=== PATIENT | female | born 1950 | race Caucasian/White ===

== ENCOUNTER 2019-06-27 01:11 | Day surgery (SDC) | payer MEDICARE, OTHER, SELFPAY ==
[2019-06-25 09:45] VITALS: BMI 22.4
[2019-06-27] MEDS: LACTATED RINGERS 1,000 ML 150 ML IV CONT (06:55)
[2019-06-27 07:01] VITALS: BP 110/52; PULSE 62; RESP 18; TEMP 36.1; O2SAT 100; BMI 23.1
--- NOTE | 2019-06-27 07:17 | P.HP_ITS ---
History of Present Illness History of Present Illness Consent: Risks, benefits, and alternatives have been discussed and questions answered. Patient agrees to proceed with procedure. Chief complaint: Neoplasm Screening Narrative: Loreto Yin is a 69 year old female Here for screening colonoscopy. [facility] Past Medical History Medical History (Updated 06/27/19 @ 07:17 by Vipin Wade MD) Wellness examination Family History Family History Father Family history of cardiovascular disease Mother Family history of malignant neoplasm of urinary bladder Social History Social History Smoking status: Never smoker Alcohol intake: never Meds Home Medications and Allergies Home Medications Medication Instructions Recorded Confirmed Type Lacto.acidophilus-Bif.animalis 1 cap PO DAILY 06/25/19 06/27/19 History [Daily Probiotic] ascorbate calcium (vitamin C) 500 mg PO DAILY 06/25/19 06/27/19 History azelastine 2 spray NASAL DAILY 06/25/19 06/25/19 History guaifenesin [Mucinex] 600 mg PO BID 06/25/19 06/25/19 History yx-utp-fkczw-vit J-oky-nudq455 1 tablet PO DAILY 06/25/19 06/27/19 History [Alive Women's 50 Plus (blend)] Allergies Allergy/AdvReac Type Severity Reaction Status Date / Time No Known Allergies Allergy Uncoded 06/27/19 06:59 Vital Signs Vital Signs - 24 hr 06/27/19 07:01 Temperature 36.1 C L Pulse Rate 62 Respiratory Rate 18 Blood Pressure 110/52 L Pulse Oximetry 100 Exam Resp: Auscultation: clear to auscultation bilaterally Cardio: Rate: regular rate Rhythm: regular rhythm GI: GI Palp: Yes Soft to palpation and No Tenderness to palpation present (GI) Assessment and Plan Assessment and plan (1) Colon cancer screening: Code(s): Z12.11 - Encounter for screening for malignant neoplasm of colon Status: Acute Assessment and Plan: Colonoscopy with possible biopsy or polypectomy or cautery or injection of substances.
--- NOTE | 2019-06-27 07:46 | WPDANESEPPF ---
Anes - Initial Pre Proc Eval Procedure: Operation Date: 06/27/19 08:00 Proposed Procedures p Screening Colonoscopy - Vipin Wade MD Date/Time: 06/27/19 07:46 Surgeon: Vipin Wade MD Pre Op Diagnosis: Neoplasm Screening Patient Data Age: 69 Gender: F Height: 5 ft 5 in Weight: 62.9 kg Last Vital Signs Temp 97 F L 06/27/19 07:01 Pulse 62 06/27/19 07:01 Resp 18 06/27/19 07:01 BP 110/52 L 06/27/19 07:01 Pulse Ox 100 06/27/19 07:01 Allergies Allergy/AdvReac Type Severity Reaction Status Date / Time No Known Allergies Allergy Uncoded 06/27/19 06:59 Home Medications Medication Instructions Recorded Confirmed Type Lacto.acidophilus-Bif.animalis 1 cap PO DAILY 06/25/19 06/27/19 History [Daily Probiotic] ascorbate calcium (vitamin C) 500 mg PO DAILY 06/25/19 06/27/19 History azelastine 2 spray NASAL DAILY 06/25/19 06/25/19 History guaifenesin [Mucinex] 600 mg PO BID 06/25/19 06/25/19 History pq-mld-xfyjq-vit T-hqn-[id number] 1 tablet PO DAILY 06/25/19 06/27/19 History [Alive Women's 50 Plus (blend)] Patient hx anesthesia problems: none Family hx anesthesia problems: none PMFSH Past Medical History Medical History Wellness examination Family History Family History Father Family history of cardiovascular disease Mother Family history of malignant neoplasm of urinary bladder Social History Social History Smoking status: Never smoker Alcohol intake: never Anes - Eval Final PreProcedure Day of Procedure 06/27/19 07:46 Patient weight: normal Heart: regular rate and rhythm Lungs: clear to auscultation Airway: Mallampati scale class II Neurological: alert and oriented Last oral intake: >/= 8 hours ASA classification: II Emergent: no Anesthetic plan: proceed Anesthesia type and monitoring: general GIVS and standard monitoring Informed Consent: The patient's anesthetic plan and its attendant risks and benefits were discussed with the patient/family/POA. Questions were solicited and answers provided to the satisfaction of the patient/family/POA.
[2019-06-27 08:15] VITALS: BP 94/40; PULSE 68; RESP 22; O2SAT 99
[2019-06-27 08:25] VITALS: BP 99/56; PULSE 61; RESP 20; O2SAT 100
[2019-06-27 08:35] VITALS: BP 107/60; PULSE 61; RESP 18; O2SAT 100
== END 2019-06-27 08:43 | disposition home or self-care (01) ==
PROVIDERS: PCP Family Medicine; Visit Provider Internal Medicine Gastroenterology
PROC: 0DJD8ZZ Inspection of Lower Intestinal Tract, Via Natural or Artificial Opening Endoscopic (ICD-10-PCS; CPT 45378; principal; 2019-06-27 08:00)
DX: Z12.11 Encounter for screening for malignant neoplasm of colon (principal)
CPT/HCPCS: G0121; J2704; J7120

== ENCOUNTER → 2020-09-28 10:57 | Outpatient (CLI) | payer MEDICARE, OTHER, SELFPAY ==
--- NOTE | ~2020-09-28 | DEXA_ITS ---
Bone Density Report Name: Loreto Yin Age: 70 Sex: Female Ethnicity: White Date of : 1950 Indication: osteopenia; cancer; postmenopausal Referring Provider: Jennifer, Gabby Bowers Study: Bone densitometry was performed. Exam Date: September 28, 2020 Accession number: [id number] Bone Density: Region BMD T-score Z-score Classification AP Spine (L1-L4) 0.868 -1.6 0.4 Osteopenia Femoral Neck (Left) 0.683 -1.5 0.2 Osteopenia Total Hip (Left) 0.914 -0.2 1.2 Normal Femoral Neck (Right) 0.654 -1.8 -0.1 Osteopenia Total Hip (Right) 0.864 -0.6 0.8 Normal Total Hip Mean 0.889 -0.4 1.0 Normal World Health Organization criteria for BMD impression classify patients as: Normal (T-score at or above -1.0), Osteopenia (T-score between -1.0 and -2.5), or Osteoporosis (T-score at or below -2.5). 10-year Fracture Risk(1): Major Osteoporotic Fracture 10.0% Hip Fracture 1.6% Reported Risk Factors: [place] (), Neck BMD=0.654, BMI=23.3 (1) FRAX(R) Version 3.08. Fracture probability calculated for an untreated patient. Fracture probability may be lower if the patient has received treatment. Previous Exams: Region Exam Age BMD T-score BMD Change BMD Change Date g/cm2 vs Baseline vs Previous AP Spine(L1-L4) 09/28/2020 70 0.868 -1.6 -0.001 -0.001 10/19/2016 66 0.869 -1.6 Total Hip(Left) 09/28/2020 70 0.914 -0.2 0.018 0.018 10/19/2016 66 0.897 -0.4 Total Hip(Right) 09/28/2020 70 0.864 -0.6 0.000 0.000 10/19/2016 66 0.864 -0.6 *Denotes significance at 95% confidence level, LSC for AP Spine = 0.022 g/cm2, LSC for Total Hip = 0.027 g/cm2 Clinical Information Provided by Patient: Has the following medical conditions: Cancer Patient maximum height was 65.5 Menopause Age: 52 Drinks caffeinated beverages Onset of menses at age 14 Number of children 0 Impression: The patient has low bone mass, based on the Right Femoral Neck T-score. The patient has an estimated ten-year risk of hip fracture of 1.6% and an estimated ten-year risk of major fracture of 10%, based on the WHO FRAX algorithm. No significant bone loss was observed. Discussion: BONE DENSITY IS LOW AT ONE OR MORE SKELETAL SITES. This patient's lowest T-score is low at one or more skeletal sites. It meets the World Health Organization's (WHO) criteria for ?low bone mass? (T-score between -1.0 and -2.5). The ruby
--- NOTE | ~2020-09-28 | MM_ITS ---
EXAMINATION: MM screening jailene LT w edmundo HISTORY: Screening TECHNIQUE: Craniocaudal and mediolateral oblique 3-D tomosynthesis images were obtained and synthetic 2-D images were generated. CAD analysis was submitted and interpreted. COMPARISON: Comparison to multiple prior studies sequentially, with oldest reviewed study dated 10/2015. BREAST PARENCHYMAL COMPOSITION: There are scattered areas of fibroglandular density. FINDINGS: There is no evidence of suspicious mass, calcification, or architectural distortion to sugg est malignancy in the left breast. There has been no suspicious interval change. IMPRESSION: 1. No mammographic evidence of malignancy. 2. Recommend routine screening mammography in one year. BI-RADS Category 1: Negative Reviewed, dictated and finalized at location A.
== END ==
PROVIDERS: PCP Family Medicine; Visit Provider Nurse Practitioner Obstetrics & Gynecology
DX: Z12.31 Encounter for screening mammogram for malignant neoplasm of breast (principal); Z78.0 Asymptomatic menopausal state; M85.88 Other specified disorders of bone density and structure, other site; M85.852 Other specified disorders of bone density and structure, left thigh; M85.851 Other specified disorders of bone density and structure, right thigh
CPT/HCPCS: 77063; 77067; 77080

== ENCOUNTER 2020-11-04 10:52 | Emergency (ER) | payer MEDICARE, OTHER, SELFPAY ==
[2020-11-04 10:59] VITALS: BP 105/42; PULSE 76; RESP 20; TEMP 37.5; O2SAT 98
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
== END 2020-11-04 11:20 | disposition home or self-care (01) ==
PROVIDERS: Emergency Provider Nurse Practitioner Family; PCP Family Medicine
DX: S39.012A Strain of muscle, fascia and tendon of lower back, initial encounter (principal); X50.1XXA Overexertion from prolonged static or awkward postures, initial encounter; M62.830 Muscle spasm of back
CPT/HCPCS: 99213; G0463

== ENCOUNTER 2021-05-20 16:01 | Emergency (ER) | payer MEDICARE, OTHER, SELFPAY ==
[2021-05-20 16:16] VITALS: BP 120/63; PULSE 86; RESP 18; TEMP 37.2; O2SAT 100
--- NOTE | 2021-05-20 16:48 | ED.URI ---
HPI - URI/Sore Throat General Chief Complaint: Upper Respiratory Infection Stated Complaint: Cough/Congestion Time Seen by Provider: 05/20/21 16:46 Source: patient and RN notes reviewed Mode of arrival: ambulatory History of Present Illness HPI Narrative: This is a 71-year-old female who presented to urgent care with complaints of a worsening cough and throat congestion. Patient noted that approximately 1 week ago she also had head congestion along with a runny nose. She did not take anything at home for her symptoms. The patient denies SOB, CP, palpitation, extremity numbness, lightheadedness, dizziness, constipation, diarrhea, chills, or fever. Related Data Home Medications Medication Instructions Recorded Confirmed Alive Women's 50 Plus (blend) 1 tablet PO DAILY 06/25/19 11/04/20 Daily Probiotic 1 cap PO DAILY 06/25/19 11/04/20 ascorbate calcium (vitamin C) 500 mg PO DAILY 06/25/19 11/04/20 Allergies Allergy/AdvReac Type Severity Reaction Status Date / Time No Known Allergies Allergy Unknown Uncoded 11/04/20 11:04 Review of Systems Review of Systems: A 14 organ system Review of Systems was performed and pertinent positives included in the HPI, otherwise remaining ROS is negative. [facility] Past Medical History Medical History Wellness examination Surgical History Surgical History History of bladder suspension procedure History of right mastectomy History of shoulder surgery Family History Family History Father Family history of cardiovascular disease Mother Family history of malignant neoplasm of urinary bladder Social History Social History Smoking status: Never smoker Second hand tobacco smoke exposure: No Alcohol intake: never Substance use: never Substance use type: does not use Gender identity (if verbalized by the patient): Female Sexual Orientation (if Verbalized by the Patient): Straight or Heterosexual Exam Narrative: GENERAL: This is a well-nourished, well-developed patient, in no apparent distress. HEAD: normocephalic, atraumatic. EYES: PERRL. Sclera clear/white. Vision is grossly intact. EARS: External ears normal, auditory canals clear and without drainage, TMs normal without perforation. Hearing grossly intact. NOSE: External nose normal with no obvious nasal discharge, nares without redness, no rhinorrhea. THROAT: Mucous membranes moist, posterior pharynx clear. NECK: Neck supple, non-tender without lymphadenopathy, masses or thyromegaly. CARDIOVASCULAR: Regular rate and rhythm without murmurs, gallops, or rubs. RESPIRATORY: Clear to auscultation. Breath sounds equal bilaterally. No wheezes, rales, or rhonchi. GASTROINTESTINAL: Abdomen soft, non-tender, nondistended. Bowel sounds are active. No hepato-splenomegaly, or palpable masses. No guarding. SKIN: warm, intact with no suspicious lesions or rash, good texture and turgor. NEURO: awake, alert, and oriented to person, place and time. There were no obvious focal neurologic abnormalities. Steady gait EXTREMITIES: Normal range of motion. No edema. No calf tenderness. Negative Homans sign bilaterally. BACK: Nontender without deformity or crepitance. No flank tenderness. Course Course Emergency Course: Patient will discharge home with a Z-Kannan and guaifenesin treated for bronchitis Level of Care: Express Care Visit Vital Signs Vital signs: Vital Signs Temperature 99.0 F 05/20/21 16:16 Pulse Rate 86 05/20/21 16:16 Respiratory Rate 18 05/20/21 16:16 Blood Pressure 120/63 05/20/21 16:16 Pulse Oximetry 100 05/20/21 16:16 Temperature 99.0 F 05/20/21 16:16 Pulse Rate 86 05/20/21 16:16 Respiratory Rate 18 05/20/21 16:16 Blood Pressure 120/63 05/20/21 16:16 Pulse Oxim
== END 2021-05-20 17:12 | disposition home or self-care (01) ==
PROVIDERS: Nurse Practitioner Family; Emergency Provider Nurse Practitioner; PCP Family Medicine
DX: J40 Bronchitis, not specified as acute or chronic (principal); Z90.11 Acquired absence of right breast and nipple; Z20.822 Contact with and (suspected) exposure to COVID-19
CPT/HCPCS: 87426; 99213; C9803; G0463

== ENCOUNTER 2021-10-09 15:43 | Emergency (ER) | payer MEDICARE, OTHER, SELFPAY ==
[2021-10-09 15:48] VITALS: BP 130/56; PULSE 80; RESP 20; TEMP 37.9; O2SAT 97
--- NOTE | 2021-10-09 16:08 | ED.URI ---
HPI - URI/Sore Throat General Chief Complaint: Upper Respiratory Infection Stated Complaint: cough sore throat achey Time Seen by Provider: 10/09/21 15:55 Source: patient Mode of arrival: ambulatory Limitations: no limitations History of Present Illness HPI Narrative: Ms. Yin is a 71-year-old female patient presenting to the clinic today with complaints of cough, sore throat, and body aches times x1 week. She reports she gets this every year and is treated with steroids. She denies any fever or chills. She reports that she has a lot of nasal drainage going in the back of her throat that is causing her to cough. No known exposure to anyone with COVID, flu, or strep. She does not wish to be tested for influenza, COVID, or strep at this time. She denies any sinus pressure or headaches. MD elicited complaint: sore throat and nasal congestion Related Data Home Medications Medication Instructions Recorded Confirmed Lactobacillus 1 cap PO DAILY 06/25/19 06/09/21 acidophilus-Bifidobac.animalis 2.5 billion cell capsule (Daily Probiotic) ascorbate calcium (vitamin C) 500 500 mg PO DAILY 06/25/19 06/09/21 mg tablet elpcnqys-bpns-bantv acid 240 1 tablet PO DAILY 06/25/19 06/09/21 mcg-vit K 120 skk-jnhurr-hmlw 293 tablet (Alive Women's 50 Plus (fruit-veg blend)) Allergies Allergy/AdvReac Type Severity Reaction Status Date / Time No Known Allergies Allergy Unknown Uncoded 06/09/21 14:01 Review of Systems Review of Systems: Pertinent positives per HPI. Patient denies any fever, chills, rash, headache, visual changes, dizziness, shortness of breath, chest pain, palpitations, nausea, vomiting, diarrhea, constipation, abdominal pain, or any urinary issues. [facility] Past Medical History Medical History Wellness examination Surgical History Surgical History History of bladder suspension procedure History of right mastectomy History of shoulder surgery Family History Family History Father Family history of cardiovascular disease Mother Family history of malignant neoplasm of urinary bladder Social History Social History Smoking status: Never smoker Second hand tobacco smoke exposure: No Alcohol intake: never Substance use: never Substance use type: does not use Gender identity (if verbalized by the patient): Female Sexual Orientation (if Verbalized by the Patient): Straight or Heterosexual Comments At the time of my signature, I reviewed and agree with the nursing past medical, surgical, social, and family history. There is no relevant family history pertinent to the patient complaint. Exam Narrative: General: Well-developed, well nourished, in no apparent distress Head: Normocephalic, atraumatic Eyes: Pupils equally round and reactive to light bilaterally, EOM intact, sclera and conjunctive clear, no discharge, lids normal Ears: TMs intact and dull, ear canals clear, no drainage, grossly hearing normal. Nose: Nares patent, nasal discharge, mild inflammation, no sinus tenderness. Mouth: Oropharynx without lesions or masses, good dentition, MMM. Postnasal drip Neck: Supple, trachea midline, no enlargement of anterior or posterior cervical nodes, no thyroid masses or goiter palpable. Cardio: Regular rate and rhythm, s1 and s2 normal, no murmur appreciated. Resp: Clear to auscultation bilaterally anteriorly and posteriorly, no rhonchi, rales, wheezing or rubs Course Course Emergency Course: Portions of this record may have been created with voice recognition software. Level of Care: Express Care Visit Vital Signs Vital signs: Vital Signs Temperature 37.9 C H 10/09/21 15:48 Pulse Rate 80 10/09/21 15:48 Respiratory Rate 20 10/09/21 15:48 Blood Pre
== END 2021-10-09 16:27 | disposition home or self-care (01) ==
PROVIDERS: Emergency Provider Nurse Practitioner Family; PCP Family Medicine
DX: J06.9 Acute upper respiratory infection, unspecified (principal); Z90.11 Acquired absence of right breast and nipple
CPT/HCPCS: 99213; G0463

== ENCOUNTER → 2021-11-17 12:14 | Outpatient (CLI) | payer MEDICARE, OTHER, SELFPAY ==
--- NOTE | ~2021-11-17 | MM_ITS ---
EXAMINATION: MM screening jailene LT w edmundo HISTORY: Screening TECHNIQUE: Craniocaudal and mediolateral oblique 3-D tomosynthesis images were obtained and synthetic 2-D images were generated. CAD analysis was submitted and interpreted. COMPARISON: Comparison to multiple prior studies sequentially, with oldest reviewed study dated 10/2015. BREAST PARENCHYMAL COMPOSITION: There are scattered areas of fibroglandular density. FINDINGS: There is no evidence of suspicious mass, calcification, or architectural distortion to sugg est malignancy in the left breast. There has been no suspicious interval change. IMPRESSION: 1. No mammographic evidence of malignancy. 2. Recommend routine screening mammography in one year. BI-RADS Category 1: Negative Reviewed, dictated and finalized at location A.
== END ==
PROVIDERS: PCP Family Medicine; Visit Provider Physician Assistant
DX: Z12.31 Encounter for screening mammogram for malignant neoplasm of breast (principal)
CPT/HCPCS: 77063; 77067

== ENCOUNTER 2022-05-03 08:00 | Outpatient (NON) | payer MEDICARE, OTHER, SELFPAY | END 2022-05-03 08:01 | disposition home or self-care (01) | LOC: ANHLAB 05-04 13:26 | PROVIDERS: PCP Family Medicine; Visit Provider Nurse Practitioner | DX: L72.8 Other follicular cysts of the skin and subcutaneous tissue (principal) | CPT/HCPCS: 88304 ==

== ENCOUNTER 2023-10-16 08:43 | Outpatient (CLI) | payer MEDICARE, OTHER, SELFPAY ==
[2023-10-16 09:27] LABS: Hematocrit 40.6 % (37.0-47.0); Mean Corpuscular Hemoglobin 32.2 pg (26-34); Mean Corpuscular Volume 100.5 fl (80-100); Mean Platelet Volume 11.7 fl (7.4-10.4); Platelet Count Result 183 k/mm3 (150-375); Red Blood Count 4.04 M/mm3 (4.2-5.4); Red Cell Distribution Width 13.3 % (11.5-14.5); White Blood Count 4.7 K/mm3 (4.5-10.0)
[2023-10-16 09:31] LABS: Appearance Urine Clear (Clear); Bilirubin Urine Negative (Negative); Blood Urine Negative (Negative); Color Urine Yellow (Yellow); Glucose Urine UA Negative (Negative); Ketones Urine Negative (Negative); Leukocyte Esterase Ur Negative LEU/UL (Negative); Nitrate Urine Negative (Negative); Protein Urine Negative (Negative); Specific Grav Ur 1.015 (1.001-1.035); Urobilinogen Urine 0.2 mg/dL (<2.0)
[2023-10-16 09:39] LABS: Alanine Aminotransferase 32 U/L (6-35); Albumin Level 4.3 g/dL (3.5-5.1); Alkaline Phosphatase 87 U/L (38-126); Anion Gap 6 mmol/L (4-12); Aspartate Amino Transferase 29 U/L (14-36); Bilirubin,Total 0.5 mg/dL (0.2-1.3); Blood Urea Nitrogen 21 mg/dL (7-17); Calcium 9.4 mg/dL (8.4-10.2); Carbon Dioxide 27 mmol/L (22-30); Chloride 107 mmol/L (98-107); Cholesterol 179 mg/dL (0-200); Estimated Glomerular Filt Rate > 60; Glucose 91 mg/dL (65-110); HDL Direct 57 mg/dL; Potassium 3.8 mmol/L (3.4-5.0); Sodium 140 mmol/L (137-145); Triglycerides 85 mg/dL (<150)
[2023-10-16 09:50] LABS: LDL Cholesterol Direct 92 mg/dL
[2023-10-16 09:56] LABS: Add Urine Microscopic? NO
[2023-10-16 10:12] LABS: Thyroid Stimulating Hormone 0.868 uIU/mL (0.465-4.680)
== END 2023-10-16 08:44 | disposition home or self-care (01) ==
PROVIDERS: PCP Family Medicine; Visit Provider Family Medicine
DX: E78.5 Hyperlipidemia, unspecified (principal); R53.83 Other fatigue
CPT/HCPCS: 36415; 80053; 80061; 81003; 84443; 85027

== ENCOUNTER 2023-11-02 11:00 | Outpatient (RCR) | payer MEDICARE, OTHER, SELFPAY ==
--- NOTE | 2023-08-25 11:58 | OPREHPOC ---
Outpatient Therapy Plan of Care This is a Multidisciplinary Plan of Care that may contain components documented by all disciplines (PT, OT, and ST.) PT Problem 1 PT Problem #1 Knowledge Deficit PT Goal 1 Goal *indep with HEP * demonstrate correct position of neck and shoulders with exercises PT Problem 2 PT Problem #2 Pain PT Goal 1 Goal 1* cervical pain at worst rating of 2/10 2* self assessment with Neck Disability Index score of 10% limitation PT Problem 3 PT Problem #3 Impaired Flexibility PT Goal 1 Goal increase cervical active rotation to improve ability to drive and home tasks 1* rotation R 70' 2* rotation L 70'4 PT Problem 4 PT Problem #4 Impaired Strength PT Goal 1 Goal increase cervical and thoracic strength, to improve posture and position of spine: 1* standing cervical- thoracic strengthening exercises x 20 reps 2* pt maintain good posture during sessions
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
--- NOTE | 2023-09-04 08:55 | PCPTNOTE ---
pt canceled today's treatment appointment.
--- NOTE | 2023-09-21 15:02 | OPREHPOC ---
Outpatient Therapy Plan of Care This is a Multidisciplinary Plan of Care that may contain components documented by all disciplines (PT, OT, and ST.) PT Problem 1 PT Problem #1 Knowledge Deficit PT Goal 1 Goal *indep with HEP * demonstrate correct position of neck and shoulders with exercises Progress Met Comment 09-21-23 d/c NECK met goals PT Goal 2 Goal 09-21-23: NEW GOALS for back *indep with HEP * correct body mechanics and posture during session Target Visit 13 PT Problem 2 PT Problem #2 Pain PT Goal 1 Goal 1* cervical pain at worst rating of 2/10 2* self assessment with Neck Disability Index score of 10% limitation Progress Not Met Comment 09-21-23 NECK d/c goals not met PT Goal 2 Goal 09-21-23 BACK eval 1* pain rating of worst at 3/10 2* pt report times of NO pain in back PT Problem 3 PT Problem #3 Impaired Flexibility PT Goal 1 Goal increase cervical active rotation to improve ability to drive and home tasks 1* rotation R 70' 2* rotation L 70'4 Progress Not Met Comment 09-21-23 NECK D/C goals not met PT Problem 4 PT Problem #4 Impaired Strength PT Goal 1 Goal increase cervical and thoracic strength, to improve posture and position of spine: 1* standing cervical- thoracic strengthening exercises x 20 reps 2* pt maintain good posture during sessions Progress Partially Met Comment 09-21-23 neck d/c met goal 1 PT Goal 2 Goal 09-21-23 BACK eval 1*increase strength of trunk and hips to 4+/5 to
--- NOTE | 2023-09-21 15:03 | PTOPPROG ---
Assessment and note entered by Azra Christensen, PT Evaluation Information Assessment Status Progress Diagnosis neck pain, low back pain Onset May 2023 Subjective Information neck is better--not as tight and sore as it was; doing the stretches and they help my neck; want to finish neck and start back treatment; BACK: chronic issues with back pain; recent xray report--lumbar multiple level degenerative changes, scoliosis; have not had PT for her low back in the past; does some stretching exercises: long sitting hamstring stretch, supine pull leg up; Assessment PT Clinical Summary Loreto has received 7 PT sessions for treatment of her neck. Compared to the initial evaluation: pain from 1-3/ 10 to 0-3/10; self assessment Neck Disability Index rating from 16% to 12% limitation in activity level; cervical range of motion is about the same, with reports of tight, but not pain; education completed for HEP and posture. The goals were partially met. Evaluation this date for diagnosis of back pain: self assessment Oswestry rating of 2% limitation in activity; standing trunk extension was the only motion that increased her pain; posture with increased lumbar lordosis; tightness of thoracic spine with rounded trunk posture and R trunk forward rotation. Skilled PT services are indicated for treatment to back: modalities for pain; therapeutic exercises and activities to increase trunk and hip strength for stability to spine, education for HEP and posture/body mechanics. Plan of Care Interventions Electrical Stimulation,Hot Pack/Cold Pack,Manual Therapy,Neuro Re-education,Patient/Caregiver Educati,Therapeutic Activities,Therapeutic Exercise,Ultrasound,Other Other Interventions aspen, TRACIE PT Services Indicated Yes Treatment Frequency and 1-2x/wk for 6 more visits Duration These treatments will address the objective and functional deficits as defined above. The patient will be advanced safely and appropriately in order for the patient to progress towards his/
--- NOTE | 2023-11-02 11:55 | PTOPDC ---
Assessment and note entered by Azra Christensne, PT Discharge Report Assessment Status Discharge Diagnosis neck pain, low back pain Onset May 2023 Subjective Information little better, but still have muscle stiffness; doing the exercises; try not to lift much to avoid hurting back; pain goes from R to L back and up to neck--not sure why it varies and changes; Reported Pain Level Pain Score Self Report Additional Pain Score Comments pain range in the past week for low back 2-5/10; ache in R and L low back, above hips; no radicular pain increase pain: not able to state; lifting decrease pain: heat, stretching still have neck pain and pain between shoulder blades Assessment PT Clinical Summary Loreto has received a total of 13 PT sessions for neck and back pain. Compared to the previous assessment for back: back pain rating is the same at range of 2-5/10; over R and L lumbar, without any radicular pain; pain increase with standing trunk extension initially, now flexion causes her pain increase; increase strength of trunk and hips, with good stability with mat and standing exercises; bilateral UE box lift from waist/floor height of 20# with correct technique and report of heavy, but not pain in back. Education completed for HEP and back care/ pain management. The goals were partially met. Discharge PT services. She is to continue with the HEP for her neck and back, with balance of activity/rest and pain control. Plan of Care PT Services Indicated No
== END 2023-11-02 14:24 | disposition home or self-care (01) ==
LOC: ANHPT 11:00
PROVIDERS: PCP Family Medicine; Visit Provider Orthopaedic Surgery
DX: M54.50 Low back pain, unspecified (principal); M48.02 Spinal stenosis, cervical region
CPT/HCPCS: 97012; 97014; 97032; 97035; 97110; 97140; 97161; 97530; G0283

== ENCOUNTER 2024-04-04 14:09 | Outpatient (CLI) | payer MEDICARE, OTHER, SELFPAY ==
--- NOTE | ~2024-04-04 | DEXA_ITS ---
Bone Density Report Name: MOODY BASS Age: 74 Sex: Female Ethnicity: White Date of : 1950 Indication: postmenopausal; screening for osteoporosis; cancer; Referring Provider: Damian Dorsey Study: Bone densitometry was performed. Exam Date: April 04, 2024 Accession number: [id number] Bone Density: Region BMD T-score Z-score Classification AP Spine(L1-L4) 0.894 -1.4 0.8 Osteopenia Femoral Neck (Left) 0.685 -1.5 0.4 Osteopenia Total Hip (Left) 0.904 -0.3 1.3 Normal Femoral Neck (Right) 0.615 -2.1 -0.2 Osteopenia Total Hip (Right) 0.881 -0.5 1.1 Normal Femoral Neck Mean 0.650 -1.8 0.1 Osteopenia Total Hip Mean 0.893 -0.4 1.2 Normal World Health Organization criteria for BMD impression classify patients as: Normal (T-score at or above -1.0), Osteopenia (T-score between -1.0 and -2.5), or Osteoporosis (T-score at or below -2.5). 10-year Fracture Risk(1): Major Osteoporotic Fracture 12% Hip Fracture 2.7% Reported Risk Factors: [place] (), Neck BMD=0.615, BMI=23.2 (1) FRAX(R) Version 3.08. Fracture probability calculated for an untreated patient. Fracture probability may be lower if the patient has received treatment. Clinical Information Provided by Patient: Has used the following medications: Vitamin D, Calcium, multi Has the following medical conditions: Cancer Patient maximum height was 66 Menopause Age: 52 Drinks caffeinated beverages Onset of menses at age 14 Number of children 0 Impression: The patient has low bone mass, based on the Right Femoral Neck T-score. Discussion: BONE DENSITY IS LOW AT ONE OR MORE SKELETAL SITES. This patient's lowest T-score is low at one or more skeletal sites. It meets the World Health Organization's (WHO) criteria for ?low bone mass? (T-score between -1.0 and -2.5). The patient's 10-year risk of fracture as calculated by FRAX is less than the threshold where pharmacological therapy is recommended by the National Osteoporosis Foundation (NOF). However, all treatment decisions require clinical judgment and consideration of individual patient factors, including patient preferences, comorbidities, previous drug use, risk factors not captured in the FRAX model (e.g., frailty, falls, vitamin D deficiency, increased bone turnover, interval significant decline in bone density) and possible under or overestimation of fracture risk by FRAX. The patient should follow a healthful lifestyle (good nutrition with adequate calcium and vitamin D, and appropriate weight-bearing exercise). Follow-Up: Consider repeating this study in 2 to 3 years to reassess this patient's status, or sooner if there is some new clinical indication. Reported by: HENRY on 04/04/2024 2:41:00 PM. Reviewed, dictated and finalized at location A.
--- NOTE | ~2024-04-04 | MM_ITS ---
EXAMINATION: MM diagnostic jailene LT w edmundo HISTORY: Prior right breast cancer with right mastectomy TECHNIQUE: 3-D tomosynthesis images of the left breast were performed and synthetic 2-D images were g enerated. CAD analysis was submitted and interpreted. COMPARISON: 11/17/2021, 09/28/2020 BREAST PARENCHYMAL COMPOSITION:Not Dense. There are scattered areas of fibroglandular density. FINDINGS: Parenchymal pattern of the left breast is unchanged. Stable low-density mass in the outer l eft subareolar region. No suspicious mass lesion or distortion. No suspicious microcalcification. IMPRESSION: No mammographic evidence for malignancy. BI-RADS Category 2: Benign finding(s). Reviewed, dictated and finalized at location . PRINT PRESS OPERATOR
== END 2024-04-04 14:10 | disposition home or self-care (01) ==
LOC: CHSIMG 14:11
PROVIDERS: PCP Family Medicine; Visit Provider Family Medicine
DX: Z78.0 Asymptomatic menopausal state (principal); R92.8 Other abnormal and inconclusive findings on diagnostic imaging of breast; M85.89 Other specified disorders of bone density and structure, multiple sites
CPT/HCPCS: 77061; 77065; 77080; G0279

== ENCOUNTER 2024-06-15 10:12 | Emergency (ER) | payer MEDICARE, OTHER, SELFPAY ==
[2024-06-15 10:27] VITALS: BP 105/45; PULSE 66; RESP 16; TEMP 36.7; O2SAT 97
--- NOTE | 2024-06-15 10:41 | ED_ITS ---
HPI - URI/Sore Throat General Chief Complaint: Upper Respiratory Infection Stated Complaint: Body Aches/Chills/Cough Time Seen by Provider: 06/15/24 10:41 Source: patient, RN notes reviewed and old records reviewed Mode of arrival: ambulatory Limitations: no limitations History of Present Illness HPI Narrative: 74 year old female who presents to [facility] care with complaints of cough, fever, and body aches since with fever and body aches. Patient has been taking Mucinex, NyQuil cold and flu, Zyrtec and has taken some Tessalon Perles for her cough. Patient reports no shortness of breath, patient reports that she has some chronic sinus congestion also. She states that she had some left over codeine cough syrup that she took that helped but is almost gone. MD elicited complaint: cough, rhinorrhea and nasal congestion Onset (ago): day(s) (3) Severity: moderate Description of mucous: clear Able to tolerate fluids by mouth: Yes Treatments prior to arrival: other (Mucinex, NyQuil cold and flu, Tessalon Perles, and Zyrtec) Related Data Home Medications ?Medication ?Instructions ?Recorded ?Confirmed ?Last Taken ?Type Lactobacillus 1 cap PO DAILY 06/25/19 10/11/23 Unknown History acidophilus-Bifidobac.animalis 2.5 billion cell capsule (Daily Probiotic) ascorbate calcium (vitamin C) 500 500 mg PO DAILY 06/25/19 10/11/23 Unknown History mg tablet djyzuyma-jxng-rrkzp acid 240 1 tablet PO DAILY 06/25/19 10/11/23 Unknown History mcg-vit K 120 gki-nxfimt-dbrg 293 tablet (Alive Women's 50 Plus (fruit-veg blend)) Allergies Allergy/AdvReac Type Severity Reaction Status Date / Time No Known Allergies Allergy Verified 06/15/24 10:23 Review of Systems Review of Systems: CONSTITUTIONAL: Reports malaise, chills, sweats, and fever. EYES: Denies visual changes, redness, or discharge. ENT: Reports rhinorrhea, congestion, sinus pain,no otalgia and no sore throat. CARDIOVASCULAR: Denies chest pain, palpitations, or edema. RESPIRATORY: Reports cough.? Denies dyspnea. GASTROINTESTINAL: Denies abdominal pain, nausea, vomiting, diarrhea SKIN: Denies rash or itching. MUSCULOSKELETAL: Reports myalgia. NEUROLOGIC: Denies headache. All systems reviewed & are unremarkable except as noted in HPI and below PMFSH Past Medical History Medical History History of breast cancer Osteopenia Wellness examination Surgical History Surgical History History of right mastectomy History of shoulder surgery History of bladder suspension procedure Family History Family History Father Family history of cardiovascular disease Mother Family history of malignant neoplasm of urinary bladder Social History Social History Smoking status: Never smoker Second hand tobacco smoke exposure: No Alcohol intake: never Substance use: never Substance use type: does not use Do You Feel Safe in your Home?: Yes Lack of Transportation: No Lack of Food: Never True Current Housing: I Have Housing Concerned About Future Housing: No Difficulty Paying Gas/Electric Bills: No Difficulty Paying for Meds: No Currently Unemployed: No Education: High School Diploma/GED Difficulty w/ Childcare or Family Care: No Living arrangements: with family Occupation/Education: retired Gender identity (if verbalized by the patient): Female Sexual Orientation (if Verbalized by the Patient): Straight or Heterosexual Comments At time of signature, agree with nursing past medical, surgical, social and family history. There is no relevant family history pertinent to the presenting complaint Exam Narrative: GENERAL: Well-appearing, well-nourished, and in no acute distress. HEAD: Normocephalic EYES: PERRLA, conjunctivae clear ENT: Nares clear, turbinates edematous and erythematous, clear discharge, sinus pressure. Mucous membranes moist. TM pearly dumont with dull light reflex bilaterally; no tragal tenderness. Oropharynx erythematous without lesions. Tonsils not enlarged and without exudate, no drooling, no hoarseness, no trismus, uvula midline. NECK: Supple. No lymphadenopathy CHEST: Clear to auscultation, breath sounds equal. No wheezing, rhonchi, rales, or stridor. No respiratory distress, speaks in full sentences.cough noted SAO2 97% on room air HEART: Regular rate and rhythm. No murmur heard. SKIN: Warm, dry, no rash. NEURO: Alert and oriented x3. PSYCH: Normal mood and affect Course Course Emergency Course: Patient is aware of diagnosis, understands and agrees to treatment plan.? Anticipatory guidance given.? Patient agrees to follow-up as directed and is aware of reasons to seek care at the emergency department. Portions of this record may have been created with voice recognition software Level of Care: Express Care Visit Vital Signs Vital signs: Vital Signs Temperature 36.7 C 06/15/24 10:27 Pulse Rate 66 06/15/24 10:27 Respiratory Rate 16 06/15/24 10:27 Blood Pressure 105/45 L 06/15/24 10:27 Pulse Oximetry 97 06/15/24 10:27 Oxygen Delivery Room Air 06/15/24 10:27 Temperature 36.7 C 06/15/24 10:27 Pulse Rate 66 06/15/24 10:27 Respiratory Rate 16 06/15/24 10:27 Blood Pressure 105/45 L 06/15/24 10:27 Pulse Oximetry 97 06/15/24 10:27 Oxygen Delivery Room Air 06/15/24 10:27 Reviewed MDM - URI/Sore Throat MDM Narrative Medical decision making narrative: Differential diagnosis considered: Macdonald virus, strep pharyngitis, allergic rhinitis, upper respiratory tract infection, sinusitis, rhinosinusitis, nasopharyngitis. viral pharyngitis, otitis media, otitis externa, pneumonia, bronchitis, viral cough syndrome, viral syndrome, and influenza.? Exam findings show no acute concerns or changes; patient is non-toxic appearing and is in no distress.? Patient is appropriate for outpatient treatment and follow-up. Differential Diagnosis Differential diagnosis: Likely upper respiratory infection and other (cough and congestion) Medical Records Attestation: I reviewed the patient's medical records. Lab Data Attestation: I reviewed the patient's lab results. Lab results narrative: Influenza NEGATIVE, INFLUENZA B NEGATIVE, covid ANTIGIEN NEGATIVE Labs: Lab Results 06/15/24 Range/Units 10:54 POC Influenza A Ag Negative (Negative) POC Influenza B Ag Negative (Negative) POC SARS CoV-2 Ag Negative (Negative) Critical Care Time Critical Care Time Critical Care Time: No Discharge Plan Discharge Clinical Impression: Acute cough Upper respiratory infection Qualifiers: URI type: unspecified URI Qualified Code(s): J06.9 - Acute upper respiratory infection, unspecified Patient Disposition: Home, Self-Care Condition: Stable Instructions: Upper Respiratory Infection (ED), Acute Cough (ED) Additional Instructions: Increase fluids especially juices and water Vhgy-haj-jtefdfz cough and cold medicine of your choice for your symptoms Prescription cough medicine as directed--caution drowsiness and no driving or alcohol Cough tablets as directed for cough--do not bite, chew or suck on--swallow whole Steroids as directed--take with food heat to the face 20-30 minutes 4-6 times a day for pain Salt water gargles, throat lozenges or throat sprays as desired Zyrtec Claritin or Barbie daily If your symptoms persist, change or worsen significantly before you can contact your personal physician then please, without delay, go to the emergency department for further evaluation. Follow-up with PCP in 7-10 days or sooner if needed Patient Language: Togolese Prescriptions: New methylprednisolone [Medrol (Kannan)] 4 mg tablets,dose pack 4 mg PO PER PKG DIR Qty: 21 0RF Rx Instructions: TAKES PRESCRIBED codeine-guaifenesin 10-100 mg/5 mL liquid 5 ml PO Q6H Qty: 200 0RF No Action ascorbate calcium (vitamin C) 500 mg Tablet 500 mg PO DAILY Daily Probiotic 2.5 billion cell Capsule 1 cap PO DAILY Alive Women's 50 Plus (blend) 240-120-300 mcg Tablet 1 tablet PO DAILY azelastine 137 mcg (0.1 %) aerosol,spray See Rx Instructions .ROUTE .COMPLEX Qty: 120 5RF Dose Instruction: USE 2 SPRAYS IN EACH NOSTRIL TWICE A DAY Rx Instructions: USE 2 SPRAYS IN EACH NOSTRIL TWICE A DAY atorvastatin 10 mg tablet See Rx Instructions .ROUTE .COMPLEX Qty: 90 2RF Dose Instruction: TAKE 1 TABLET BY MOUTH DAILY AT BEDTIME Rx Instructions: TAKE 1 TABLET BY MOUTH DAILY AT BEDTIME Follow-up/Referrals: Damian Dorsey MD [Primary Care Provider] - Time of Disposition: 10:57 Quality [place] Coma Scale Eyes: Open Verbal: Oriented and Alert Motor: Follows Commands [place] Coma Total Score: 15
[2024-06-15 10:56] LABS: EDCOVIDSCREEN Negative (Negative); EDINFLUASCREEN Negative (Negative); EDINFLUBSCREEN Negative (Negative)
== END 2024-06-15 11:13 | disposition home or self-care (01) ==
PROVIDERS: Emergency Provider Registered Nurse; PCP Family Medicine
DX: R05.1 Acute cough (principal); J06.9 Acute upper respiratory infection, unspecified; Z20.822 Contact with and (suspected) exposure to COVID-19; M85.80 Other specified disorders of bone density and structure, unspecified site; Z85.3 Personal history of malignant neoplasm of breast; Z90.11 Acquired absence of right breast and nipple
CPT/HCPCS: 87426; 87804; 99213; G0463